=== PATIENT | female | born 1950 | race Hispanic/Latino ===

== ENCOUNTER → 2017-12-09 | Outpatient (CLI) | payer MEDICARE, BC ==
--- NOTE | 2017-12-09 12:57 | Diagnostic Imaging Report ---
Left hand MRI without contrast. Left Wrist MRI without contrast. History: Hand pain. Wrist pain. Pain in the region of the fifth digit. Fall. Comparison: None Technique: Multiplanar multisequence MRI of the left hand without contrast. Multiplanar multisequence MRI of the left wrist without contrast. Findings: Left hand MRI: There is no acute fracture, subluxation or avascular necrosis. Mild scattered degenerative changes are seen. No ligamentous or tendon tear is seen. The visualized neurovascular bundles are intact. The visualized muscles are normal in size, signal intensity and morphology. Left wrist MRI: The scapholunate ligament is intact. The lunotriquetral ligament is intact. The triangular fibrocartilage complex is intact. There is a small distal radial ulnar joint effusion and mild synovitis. Mild scattered degenerative changes are seen. There is dorsal capsular scarring and synovitis. There is neutral ulnar variance. No osteochondral lesion. No acute fracture, subluxation or avascular necrosis. Extensor tendons are normal. The flexor tendons are normal. Signal intensity within the median nerve is normal. No ganglion cyst. There is normal alignment of the wrist. Impression: Dorsal capsular scarring and synovitis. Small distal radial ulnar joint effusion and mild synovitis. Mild scattered degenerative change. No ligamentous or tendon tear about the hand or wrist. Signed by: Dr. Albert Arevalo M.D. on 12/09/2017 12:53 PM
== END ==
LOC: MRI 09:56
PROVIDERS: ATTEND Family Medicine
DX: M79.642 Pain in left hand (principal); M25.532 Pain in left wrist

== ENCOUNTER → 2025-06-08 | Outpatient (REF) | payer MEDICARE, BC | LOC: RAD 13:34 | PROVIDERS: ATTEND Family Medicine | DX: H57.12 Ocular pain, left eye (principal) | CPT/HCPCS: 70200 ==